=== PATIENT | female | born 1970 | race Caucasian/White ===

== ENCOUNTER 2017-02-06 08:06 | Emergency (ER) | payer OTHER ==
[2017-02-06 08:08] VITALS: BP 139/90; PULSE 82; RESP 16; TEMP 98.9; O2SAT 16; O2SAT 97
--- NOTE | 2017-02-06 08:41 | PD ---
HPI Chief Complaint: left toe pain Time Seen by Provider: 08:27 Travel History International Travel<30 days: No Contact w/Intl Traveler<30days: No History of Present Illness HPI 46-year-old female presents to emergency department for left fourth and fifth toe pain after a slip and fall down a flight of stairs that occurred just prior to arrival. States that the stairs were wet and she slipped and slid on her butt down the flight of stairs. Says now that her fourth toe appears deformed has mild pain with movement. Also says that she has some tingling of the toe. She has mild pain of the 5th toe with a wound to the lateral aspect. Pt is able to move both toes. Patient denies head trauma, loss of consciousness, dizziness , blurred vision, neck pain, back pain, or weakness. Denies pain anywhere else except the fourth and fifth toes. Denies chronic medical issues or chronic medication use. PFSH Social History Tobacco Use: No Allergies-Medications (Allergen,Severity, Reaction): Coded Allergies: No Known Allergies (Verified Allergy, Unknown, 02/06/17) Reported Meds & Prescriptions Reported Meds & Active Scripts Active No Active Prescriptions or Reported Medications Review of Systems Except as stated in HPI: all other systems reviewed are Neg Physical Exam Narrative GENERAL: Well-developed well-nourished in no apparent distress, ambulatory to the hospital today SKIN: Focused skin assessment warm/dry. Fifth toe with 3mm lateral superficial avulsion. HEAD: Atraumatic. Normocephalic. EYES: Pupils equal and round. No scleral icterus. No injection or drainage. ENT: No nasal bleeding or discharge. Mucous membranes pink and moist. NECK: Supple, nontender. No meningeal signs. Trachea midline. No JVD or lymphadenopathy. CARDIOVASCULAR: Regular rate and rhythm. No murmur appreciated. RESPIRATORY: No accessory muscle use. Clear to auscultation. Breath sounds equal bilaterally. MUSCULOSKELETAL: No obvious deformities. No clubbing. No cyanosis. No edema. BACK: No CVA tenderness. No rash. No point tenderness on palpation of the spine. NEUROLOGICAL: Awake and alert. No obvious cranial nerve deficits. Motor grossly within normal limits. Normal speech. Left lower extremity: Left Fourth toe slightly lateral displacement without ecchymosis. Neurovascular intact. Fifth toe: Small 3mm superficial avulsion to the lateral aspect not involving the nail without ecchymosis. Neurovascularly intact. Limited active range of motion secondary to pain. PSYCHIATRIC: Appropriate mood and affect; insight and judgment normal. Data Data Last Documented VS Vital Signs Date Time Temp Pulse Resp B/P (MAP) Pulse Ox O2 Delivery O2 Flow Rate FiO2 02/06/17 10:02 02/06/17 09:29 16 99 Room Air 02/06/17 08:08 98.9 82 Orders Orders Foot, Complete ([id number]) (02/06/17 ) Splint Or Brace Apply/Monitor (02/06/17 09:26) Ed Discharge Order (02/06/17 09:29) MDM Medical Decision Making Medical Screen Exam Complete: Yes Emergency Medical Condition: Yes Differential Diagnosis Left: Fourth toe sprain versus strain versus fracture Fifth toe sprain versus strain versus fracture Narrative Course 46-year-old female presents to emergency department for left fourth and fifth toe pain after a slip and fall down a flight of stairs that occurred just prior to arrival. States that the stairs were wet and she slipped and slid on her butt down the flight of stairs. Says now that her fourth toe appears deformed has mild pain with movement. Also says that she has some tingling of the toe. She has mild pain of the 5th toe with a wound to the lateral aspect. Pt is able to move both toes. Patient denies head trauma, loss of consciousness, dizziness , blurred vision, neck pain, back pain, or weakness. Denies pain anywhere else except the fourth and fifth toes. Denies chronic medical issues or chronic medication use. Physical exam demonstrates lateral displaced 4th toe at the MTP joint without ecchymosis or crepitus, neurovascularly intact. 5th toe without deformity, ecchymosis, crepitus. Neurovascularly intact. Head, neck, and back- atraumatic, no TTP, neuro intact. Otherwise WNL. Pt refused pain management while awaiting xray. Imaging study: There is a transverse fracture of the base of the fourth proximal phalangeal bone. Mild medial angulation. Cheo taping to 3rd toe. OTC NSAIDs. Follow up with ortho within 1 week. Pt advised to return for worsening symptoms. Diagnosis Primary Impression: Fracture of fourth toe, left, closed Qualified Codes: S92.502A - Displaced unspecified fracture of left lesser toe( s), initial encounter for closed fracture Additional Impression: Sprain of toe, fifth, left Qualified Codes: S93.505A - Unspecified sprain of left lesser toe(s), initial encounter Referrals: Primary Care Physician Patient Instructions: General Instructions, Toe Fracture (ED) Additional Instructions: Use OTC motrin or tylenol per package instructions. Use ice, elevation, compression for symptom management. Follow-up with the orthopedics within 2-3 days. Return to the emergency department if symptoms persist or worsen Scripts No Active Prescriptions or Reported Meds Disposition: 01 DISCHARGE HOME Condition: Stable Cyndee Pop Feb 06, 2017 08:41
--- NOTE | 2017-02-06 09:16 | RADRPT ---
EXAM DATE/TIME: 02/06/2017 08:41 [facility] COMPARISON: No previous studies available for comparison. INDICATIONS : Left foot pain in fourth and fifth digits. Patient states she fell down stairs. MEDICAL HISTORY : None. SURGICAL HISTORY : None. ENCOUNTER: Initial ACUITY: 1 day PAIN SCORE: 7/10 LOCATION: Left foot, fourth and fifth digits. FINDINGS: Three view examination of the left foot demonstrates no soft tissue swelling, or dislocation. There i s a transverse fracture of the base of the fourth proximal phalangeal bone. Mild medial angulation. The tarsal bones appear intact. The interphalangeal and metatarsophalangeal joints are intact. The calcaneus is intact. Bony mineralization is normal. CONCLUSION: There is a transverse fracture of the base of the fourth proximal phalangeal bone. Mild medial angul ation. Jaime Simon MD on February 06, 2017 at 9:13 Board Certified Radiologist. This report was verified electronically.
== END 2017-02-06 10:03 | disposition home or self-care (01) ==
LOC: EDBD 08:06 → NEPD 08:06
DX: S92.502A Displaced unspecified fracture of left lesser toe(s), initial encounter for closed fracture (principal); S93.505A Unspecified sprain of left lesser toe(s), initial encounter; W10.9XXA Fall (on) (from) unspecified stairs and steps, initial encounter
CPT/HCPCS: 73630; 99283